=== PATIENT | male | born 1970 | race Caucasian/White ===

== ENCOUNTER 2021-12-18 09:05 | Outpatient (CLI) | payer OTHER, SELFPAY ==
--- NOTE | ~2021-12-18 | US_ITS ---
EXAMINATION: US soft tissue abdomen EXAM DATE: 12/18/2021 09:54 INDICATION: Ventral hernia versus diastases recti muscles. TECHNIQUE: Multiple grayscale and Doppler images of the abdominal soft tissue were obtained (by a jana hnologist who performed the scan) and subsequently reviewed. There is no prior study for comparison. FINDINGS: No abdominal wall defect, no hernia identified. There is very thin appearing abdominal wall in the um bilical region, with artifact from bowel gas quite superficially located. This could indicate diastas es. IMPRESSION: Findings consistent with abdominal wall diastases without focal hernia. Reviewed, dictated and finalized at location A. CUTTER IMPRESSION: Findings consistent with abdominal wall diastases without focal her soto.
--- NOTE | ~2021-12-18 | XR_ITS ---
EXAMINATION: XR chest 2V DATE: 12/18/2021 09:45 INDICATION: Nicotine dependence. Ventral hernia. TECHNIQUE: Frontal and lateral views of the chest were obtained. COMPARISON: None. FINDINGS: The chest demonstrates clear lungs without pneumonia, pleural effusion, or pneumothorax. Th e heart size is normal. IMPRESSION: 1. No acute cardiopulmonary disease. Reviewed, dictated and finalized at location A. FOUNDER [employer] CTO
[2021-12-18 09:48] LABS: Basophils Percent Auto 0.5 % (0.2-1.2); Eosinophils Absolute Auto 0.1 K/mm3 (0-0.3); Eosinophils Percent Auto 1.5 % (0-4.4); Hematocrit 46.3 % (42.0-52.0); Hemoglobin 16.1 g/dL (14.0-18.0); Immature Granulocyte Absolute 0.03 K/mm3 (0.00-0.031); Immature Granulocyte Percent A 0.5 % (0-0.5); Lymphocytes Absolute Auto 2.01 K/mm3 (0.9-3.2); Lymphocytes Percent Auto 30.6 % (18.3-44.2); Mean Corpuscular HGB Conc 34.8 g/dl (32-36); Mean Corpuscular Hemoglobin 32.2 pg (26-34); Mean Corpuscular Volume 92.6 fl (80-100); Mean Platelet Volume 10.9 fl (7.4-10.4); Monocytes Absolute Auto 0.4 K/mm3 (0.1-0.6); Monocytes Percent Auto 6.4 % (2.6-8.5); Neutrophils Percent Auto 60.5 % (45.5-73.1); Platelet Count Result 165 k/mm3 (150-375); Red Cell Distribution Width 12.1 % (11.5-14.5); White Blood Count 6.6 K/mm3 (4.5-10.0)
[2021-12-18 09:54] LABS: Add Urine Microscopic? YES; Appearance Urine Clear (Clear); Bilirubin Urine Negative (Negative); Blood Urine 1+ (Negative); Color Urine Yellow (Yellow); Glucose Urine UA Negative (Negative); Ketones Urine Negative (Negative); Leukocyte Esterase Ur Negative LEU/UL (NEGATIVE); Mucus Urine Rare /lpf; Nitrate Urine Negative (Negative); Protein Urine Negative (Negative); RBC Urine 0-2 /hpf (0-2); Specific Grav Ur 1.021 (1.001-1.035); Squamous Epithelial Cell Urine Rare /hpf (Few); Urobilinogen Urine Negative mg/dL (<2.0); WBC Urine 0-3 /hpf (0-3)
[2021-12-18 09:57] LABS: Alanine Aminotransferase 76 U/L (4-50); Albumin Level 4.3 g/dL (3.5-5.1); Alkaline Phosphatase 59 U/L (38-126); Anion Gap 9 mmol/L (8-16); Aspartate Amino Transferase 49 U/L (17-59); Bilirubin,Total 0.5 mg/dL (0.2-1.3); Blood Urea Nitrogen 19 mg/dL (9-20); Calcium 9.1 mg/dL (8.4-10.2); Carbon Dioxide 25 mmol/L (22-30); Chloride 105 mmol/L (98-107); Cholesterol 227 mg/dL (0-200); Estimated Glomerular Filt Rate > 60; Glucose 161 mg/dL (65-110); HDL Direct 33 mg/dL; Potassium 4.2 mmol/L (3.4-5.0); Sodium 139 mmol/L (137-145); Triglycerides 178 mg/dL (<150)
[2021-12-18 10:09] LABS: LDL Cholesterol Direct 169 mg/dL
[2021-12-18 10:25] LABS: Creatinine Urine 153.9 mg/dL
[2021-12-18 10:28] LABS: Prostate Specific Antigen 0.5 ng/mL (< OR = 4.0)
[2021-12-18 10:30] LABS: MALB Creatinine Ratio 5.8 mg/g (0-30); Microalbumin Urine Random 8.9 mg/L (0-16.7)
[2021-12-18 11:13] LABS: Hepatitis C Virus Antibody Negative (Negative)
[2021-12-20 13:50] LABS: HIV 1 2 Ag Ab 4th Gen w Rflxs Non-reactive (Non-reactive)
== END 2021-12-18 09:06 | disposition home or self-care (01) ==
LOC: ANHIMG 09:08
PROVIDERS: Visit Provider Internal Medicine Infectious Disease
DX: M62.08 Separation of muscle (nontraumatic), other site (principal)
CPT/HCPCS: 36415; 71046; 76705; 80053; 80061; 81001; 82043; 83036; 84153; 84443; 85025; 86803; 87389